=== PATIENT | female | born 1995 | race Caucasian/White ===

== ENCOUNTER 2018-02-15 11:42 | Emergency (ER) | payer OTHER ==
[~2018-02-15] VITALS: Ht 170.2 cm; Wt 54.4 kg
== END 2018-02-15 14:46 | disposition home or self-care (01) ==
LOC: ER 11:42
DX: R19.7 Diarrhea, unspecified (principal)

== ENCOUNTER 2019-03-17 20:40 | Emergency (ER) | payer OTHER ==
[~2019-03-17] VITALS: Ht 170.2 cm; Wt 54.9 kg
[2019-03-17] MEDS ORDERED: MUCINEX DM ER1 EAC1 PO (22:37)
== END 2019-03-17 22:40 | disposition home or self-care (01) ==
LOC: ER 20:40 → EDBD 20:52 → ER 22:40
DX: J02.9 Acute pharyngitis, unspecified (principal)